=== PATIENT | female | born 1960 | race Two or more races ===

== ENCOUNTER 2021-07-09 14:34 | Emergency (ER) | payer OTHER ==
[~2021-07-09] VITALS: Ht 152.4 cm; Wt 98.0 kg
[~2021-07-09 14:34] MED LIST: ACETAMINOPHEN325 M1 PO; ANTIVERT25 MG PO; ATENOLOL25 MG PO; CIPRO500 MG PO; DIOVAN320 MG PO; DIOVAN40 MG PO; ELABIL PO; LEVSIN0.125 MG PO; NEURONTIN800 MG PO; NORVASC5 MG PO; PANADOL MAXIMU500 MG PO; PROTONIX40 MG PO; TIGAN300 MG PO; ULTRACET PO; ZANTAC150 M1 PO
[2021-07-09] MEDS ORDERED: PEPCID20 MG PO (14:43)
[2021-07-09] MEDS ORDERED: TOPROL XL50 M1 (14:43)
[2021-07-09] MEDS ORDERED: JANUVIA25 MG (14:43)
== END 2021-07-09 20:29 | disposition home or self-care (01) ==
LOC: ER 14:34
DX: K57.92 Diverticulitis of intestine, part unspecified, without perforation or abscess without bleeding (principal); N28.1 Cyst of kidney, acquired

== ENCOUNTER 2021-09-21 08:48 | Emergency (ER) | payer OTHER ==
[~2021-09-21] VITALS: Ht 152.4 cm; Wt 93.4 kg
[~2021-09-21 08:48] MED LIST changes: +JANUVIA25 MG; +PEPCID20 MG PO; +TOPROL XL50 M1
[2021-09-21] MEDS ORDERED: GLUCOTROL10 MG PO (09:03)
[2021-09-21] MEDS ORDERED: NEURONTIN300 MG PO (09:03)
[2021-09-21] MEDS ORDERED: ONDANSETRON ODT4 MG PO (15:46)
[2021-09-21] MEDS ORDERED: PEPCID AC20 MG PO (15:46)
[2021-09-21] MEDS ORDERED: METRONIDAZOLE500 MG PO (15:46)
[2021-09-21] MEDS ORDERED: PROTONIX20 MG PO (15:46)
[2021-09-21] MEDS ORDERED: INTESTINEX680 M1 PO (15:46)
[2021-09-21] MEDS ORDERED: CIPRO500 MG PO (15:46)
== END 2021-09-21 16:37 ==
LOC: ER 08:48
DX: K57.32 Diverticulitis of large intestine without perforation or abscess without bleeding (principal); I10 Essential (primary) hypertension; E11.9 Type 2 diabetes mellitus without complications; Z79.4 Long term (current) use of insulin

== ENCOUNTER → 2023-06-12 | Emergency (ER) | payer OTHER ==
[~2023-06-12] VITALS: Ht 152.4 cm; Wt 99.8 kg
[~2023-06-12] MED LIST changes: +AVAPRO300 MG; +GLUCOTROL10 MG PO; +INTESTINEX680 M1 PO; +JANUVIA100 MG; +LOSARTAN-HCTZ1 EAC2 PO; +MACROBID 100 M100 MG PO; +METRONIDAZOLE500 MG PO; +NASAL MIST126 ML; +NEURONTIN300 MG PO; +ONDANSETRON ODT4 MG PO; +PEPCID AC20 MG PO; +PROTONIX20 MG; +PROTONIX20 MG PO; +ZOLOFT100 MG; +ZOLOFT100 MG PO
[2023-06-12 15:31] LABS: HEMATOCRIT 37.2 % (36.0-45.00); HEMOGLOBIN 12.3 g/dL (12.0-15.00); MEAN CELL VOLUME 79.8 fL (80.00-100.00); MEAN CORPUSCULAR HEMOGLOBIN 26.5 pg (27.00-32.0); MEAN CORPUSCULAR HGB CONC 33.2 g/dl (32.0-36.0); PLATELET COUNT 255 K/uL (150-450); RED BLOOD COUNT 4.66 M/uL (4.00-6.00); RED CELL DISTRIBUTION WIDTH 15.6 % (11.5-14.5)
[2023-06-12 15:51] LABS: PH,URINE 5.5 (5.0-8.0); URINE APPEARANCE Turbid; URINE BILIRRUBIN Small (NEGATIVE); URINE BLOOD Large; URINE COLOR Red; URINE GLUCOSE Negative (NEGATIVE); URINE LEUKOCYTE Moderate; URINE NITRATE Positive; URINE UROBILINOGEN 0.2 E.U./dl
[2023-06-12 15:55] LABS: URINE BACTERIA 516.5 uL (0.0-1933); URINE EPITHELIAL CELLS 93.6 uL (0.0-38.8); URINE WBC 326.2 uL (0.0-23.2)
[2023-06-12 16:01] LABS: INR 1.03; PARTIAL THROMBOPLASTIN TIME 26.6 SECONDS (22.0-34.0); PROTHROMBIN TIME 10.8 SECONDS (9.0-11.5)
[2023-06-12 16:32] LABS: URINE PROTEIN 100 (NEGATIVE); URINE RBC > 10558.9 uL (0.0-20.8)
[2023-06-12 17:25] LABS: CREATININE SERUM 0.93 mg/dL (0.55-1.02); GFR 60.69; POTASSIUM 3.99 mEq/L (3.5-5.1)
== END | disposition home or self-care (01) ==
LOC: ER 13:31
PROVIDERS: Emergency Medicine; Nurse Practitioner Family
DX: N93.8 Other specified abnormal uterine and vaginal bleeding (principal)

== ENCOUNTER 2023-06-15 06:46 | Day surgery (SDC) | payer OTHER ==
[2023-06-14 10:38] LABS: HEMOGLOBIN 12.4 g/dL (12.0-15.00); MEAN CELL VOLUME 79.3 fL (80.00-100.00); MEAN CORPUSCULAR HEMOGLOBIN 27.2 pg (27.00-32.0); MEAN CORPUSCULAR HGB CONC 34.3 g/dl (32.0-36.0); PLATELET COUNT 271 K/uL (150-450); RED BLOOD COUNT 4.54 M/uL (4.00-6.00); RED CELL DISTRIBUTION WIDTH 15.1 % (11.5-14.5)
[2023-06-14 11:08] LABS: PH,URINE 6.5; URINE BILIRRUBIN SMALL (NEGATIVE); URINE BLOOD LARGE; URINE GLUCOSE NEGATIVE (NEGATIVE); URINE LEUKOCYTE SMALL; URINE NITRATE NEGATIVE; URINE PROTEIN 30 (NEGATIVE); URINE UROBILINOGEN 0.2 E.U./dl
[2023-06-14 11:09] LABS: INR 0.98; PARTIAL THROMBOPLASTIN TIME 27.2 SECONDS (22.0-34.0); PROTHROMBIN TIME 10.3 SECONDS (9.0-11.5)
[2023-06-14 11:14] LABS: ALBUMIN 3.1 gm/dL (3.4-5.0); BILIRUBIN TOTAL 0.36 mg/dL (0.3-1.2); CALCIUM 9.1 mg/dL (8.5-10.1); CREATININE SERUM 1.01 mg/dL (0.55-1.02); GFR 55.18; TOTAL PROTEIN 7.1 gm/dL (6.4-8.2)
[2023-06-14 11:16] LABS: URINE APPEARANCE TURBID; URINE COLOR RED
[2023-06-14 11:18] LABS: URINE BACTERIA SOME; URINE RBC LOADED /HPF; URINE WBC 0-2 /hpf
[2023-06-14 11:19] LABS: POTASSIUM 4.18 mEq/L (3.5-5.1)
== END 2023-06-15 17:10 | disposition home or self-care (01) ==
LOC: CIR.AMB 06:46
PROVIDERS: ATTEND Obstetrics & Gynecology
DX: N85.02 Endometrial intraepithelial neoplasia [EIN] (principal); N95.0 Postmenopausal bleeding; R93.89 Abnormal findings on diagnostic imaging of other specified body structures; Z20.822 Contact with and (suspected) exposure to COVID-19; E11.9 Type 2 diabetes mellitus without complications; E78.5 Hyperlipidemia, unspecified; I10 Essential (primary) hypertension; E66.9 Obesity, unspecified

== ENCOUNTER 2023-07-08 11:31 | Emergency (ER) | payer OTHER ==
[~2023-07-08] VITALS: Ht 152.4 cm; Wt 99.8 kg
[2023-07-08 13:09] LABS: HEMATOCRIT 36.6 % (36.0-45.00); HEMOGLOBIN 12.3 g/dL (12.0-15.00); MEAN CELL VOLUME 78.9 fL (80.00-100.00); MEAN CORPUSCULAR HEMOGLOBIN 26.6 pg (27.00-32.0); MEAN CORPUSCULAR HGB CONC 33.7 g/dl (32.0-36.0); PLATELET COUNT 323 K/uL (150-450); RED BLOOD COUNT 4.64 M/uL (4.00-6.00); RED CELL DISTRIBUTION WIDTH 14.8 % (11.5-14.5)
[2023-07-08 13:38] LABS: ALBUMIN 2.9 gm/dL (3.4-5.0); BILIRUBIN TOTAL 0.42 mg/dL (0.3-1.2); CALCIUM 8.9 mg/dL (8.5-10.1); CREATININE SERUM 1.03 mg/dL (0.55-1.02); GFR 53.95; GLOBULINA 4.3 G/DL (2.4-3.5); POTASSIUM 3.72 mEq/L (3.5-5.1); TOTAL PROTEIN 7.2 gm/dL (6.4-8.2)
== END 2023-07-08 18:03 | disposition home or self-care (01) ==
LOC: ER 11:31
PROVIDERS: Emergency Medicine
DX: R11.0 Nausea (principal); I10 Essential (primary) hypertension

== ENCOUNTER 2024-03-18 12:45 | Inpatient (IN) | payer OTHER ==
[~2024-03-18] VITALS: Ht 152.4 cm; Wt 97.5 kg
[~2024-03-18 12:45] MED LIST changes: +LEVSIN/SL0.125 MG
[2024-03-21] MEDS ORDERED: CEFOXITIN SODIUM 2,000 MG VIAL IV ONE (06:57)
[2024-03-21] MEDS ORDERED: POVIDONE-IODINE 118 ML BOTT TOP ONE (07:24)
[2024-03-21] MEDS ORDERED: VISTASEAL DUAL APPICATOR 1 EACH APPL TOP ONE (08:43)
[2024-03-21] MEDS ORDERED: THROMBIN,HU/FIBRINOGEN/CALCIUM 10 ML SYRINGE TOP ONE (08:44)
[2024-03-21] MEDS ORDERED: SUGAMMADEX SODIUM 200 MG/2 ML VIAL IV ONE (09:29)
[2024-03-21] MEDS ORDERED: MORPHINE SULFATE 4 MG/ML CARTRIDGE IV PRN (10:30)
[2024-03-21] MEDS ORDERED: RINGERS SOLUTION,LACTATED 1,000 ML IV SCH (10:30)
[2024-03-21] MEDS ORDERED: ONDANSETRON HCL 2 MG/ML VIAL IV PRN (10:30)
[2024-03-21] MEDS ORDERED: IRBESARTAN-HCT1 EAC1 (11:03)
[2024-03-21] MEDS ORDERED: MEDROXYPROGESTE10 MG (11:03)
[2024-03-21] MEDS ORDERED: ROSUVASTATIN CA20 MG (11:03)
[2024-03-21 12:24] LABS: HEMATOCRIT 36.5 % (36.0-45.00); MEAN CELL VOLUME 77.3 fL (80.00-100.00); MEAN CORPUSCULAR HEMOGLOBIN 25.5 pg (27.00-32.0); PLATELET COUNT 302 K/uL (150-450); RED BLOOD COUNT 4.72 M/uL (4.00-6.00); RED CELL DISTRIBUTION WIDTH 15.7 % (11.5-14.5)
[2024-03-21] MEDS ORDERED: ENALAPRILAT DIHYDRATE 1.25 MG/ML VIAL IV ONE (12:38)
[2024-03-21] MEDS ORDERED: SIMETHICONE 125 MG CAPSULE PO SCH (13:00)
[2024-03-21 13:24] LABS: CALCIUM 8.9 mg/dL (8.5-10.1); CREATININE SERUM 1.06 mg/dL (0.55-1.02); GFR 52.02; POTASSIUM 4.29 mEq/L (3.5-5.1)
[2024-03-21] MEDS ORDERED: INSULIN LISPRO 1,000 UNIT/10 ML UNITS SUBCUTANEO PRN (15:15)
[2024-03-21] MEDS ORDERED: DEXTROSE 50 % IN WATER 0.5 G/ML DISP.SYRIN IV PRN (15:15)
[2024-03-21] MEDS ORDERED: ENALAPRILAT DIHYDRATE 1.25 MG/ML VIAL IV PRN (15:15)
[2024-03-21] MEDS ORDERED: KETOROLAC TROMETHAMINE 30 MG VIAL IV SCH (17:00)
[2024-03-21] MEDS ORDERED: CEFOXITIN SODIUM 2,000 MG VIAL IV SCH (17:00)
[2024-03-21] MEDS ORDERED: FAMOTIDINE/PF 20 MG/2 ML VIAL IV SCH (21:00)
[2024-03-21] MEDS ORDERED: DOCUSATE SODIUM 100MG CAP PO SCH (21:00)
[2024-03-22 01:23] LABS: CALCIUM 8.2 mg/dL (8.5-10.1); CREATININE SERUM 0.93 mg/dL (0.55-1.02); GFR 60.5; POTASSIUM 3.32 mEq/L (3.5-5.1)
[2024-03-22 07:00] LABS: HEMATOCRIT 32.4 % (36.0-45.00); HEMOGLOBIN 10.8 g/dL (12.0-15.00); MEAN CELL VOLUME 75.9 fL (80.00-100.00); MEAN CORPUSCULAR HEMOGLOBIN 25.3 pg (27.00-32.0); MEAN CORPUSCULAR HGB CONC 33.3 g/dl (32.0-36.0); PLATELET COUNT 291 K/uL (150-450); RED BLOOD COUNT 4.27 M/uL (4.00-6.00); RED CELL DISTRIBUTION WIDTH 15.8 % (11.5-14.5)
[2024-03-22] MEDS ORDERED: IRBESARTAN 300 MG TABLET PO SCH (09:00)
[2024-03-22] MEDS ORDERED: METOPROLOL SUCCINATE 50 MG TAB.SR.24H PO SCH ×2 (09:00→21:00)
[2024-03-22] MEDS ORDERED: POTASSIUM CHLORIDE 10 MEQ CAPSULE PO NR (09:00)
[2024-03-22] MEDS ORDERED: ENOXAPARIN SODIUM 40 MG/0.4 ML SYRINGE SUBCUTANEO SCH (09:00)
== END 2024-03-22 12:53 | disposition home or self-care (01) | DRG 743 ==
LOC: O/R 03-21 05:30 → OB/GYN 03-21 05:30 → SURH 03-21 12:45 → OB/GYN 03-21 13:45 → SURH 03-21 13:45 → OB/GYN 03-22 12:53
PROVIDERS: Obstetrics & Gynecology; ADMIT Obstetrics & Gynecology Gynecologic Oncology; ATTEND Obstetrics & Gynecology Gynecologic Oncology
PROC: 0UT74ZZ Resection of Bilateral Fallopian Tubes, Percutaneous Endoscopic Approach (ICD-10-PCS; 2024-03-21)
PROC: 0UT24ZZ Resection of Bilateral Ovaries, Percutaneous Endoscopic Approach (ICD-10-PCS; 2024-03-21)
PROC: 07BC4ZZ Excision of Pelvis Lymphatic, Percutaneous Endoscopic Approach (ICD-10-PCS; 2024-03-21)
PROC: 0UT94ZZ Resection of Uterus, Percutaneous Endoscopic Approach (ICD-10-PCS; principal; 2024-03-21 13:45)
DX: D25.1 Intramural leiomyoma of uterus (principal); D36.0 Benign neoplasm of lymph nodes; N80.03 Adenomyosis of the uterus; N84.0 Polyp of corpus uteri; Z20.822 Contact with and (suspected) exposure to COVID-19